=== PATIENT | female | born 1965 | race American Indian/Alaskan Native ===

== ENCOUNTER 2017-05-15 10:45 | Emergency (ER) | payer MEDICAID ==
[2017-05-15 11:52] VITALS: BP 154/87
== END 2017-05-15 17:10 | disposition left against medical advice (07) ==
LOC: ED 10:45
DX: M79.605 Pain in left leg (principal); Z53.21 Procedure and treatment not carried out due to patient leaving prior to being seen by health care provider

== ENCOUNTER 2019-02-22 10:26 | Emergency (ER) | payer MEDICAID ==
[2019-02-22 10:32] VITALS: BP 115/67
--- NOTE | 2019-02-22 10:36 | Event Note ---
ED Screening Note ED Screening Note: right knee pain for two months no fall or injury PCP sent to [facility] no numbness or weakness
--- NOTE | 2019-02-22 10:39 | Emergency Department Report ---
ED Extremity Problem HPI - General Chief complaint: Extremity Problem,Nontraumatic Stated complaint: LEG/KNEE PAIN Source: patient Mode of arrival: Ambulatory Limitations: No Limitations - History of Present Illness Initial comments: Patient is a 53-year-old female presents emergency room with complaints of right knee pain and swelling that began 2 months ago. She denies any fall or injury. she denies any numbness or weakness. she saw her primary care doctor for this complaint and was referred to [facility]. She states that [facility] believed her knee discomfort was coming from her back but she never followed back up. Patient has also had chronic knee pain on the left knee. - Related Data Previous Rx's Medication Instructions Recorded Last Taken Type Menthol/Camphr/Antiarthritic 1 1 applicatio TP BID #113 cream.ml. 02/22/19 Unknown Rx [[place] Arthritis Rub Cream] Naproxen [EC-Naprosyn] 500 mg PO BID PRN #14 tablet. 02/22/19 Unknown Rx Allergies Allergy/AdvReac Type Severity Reaction Status Date / Time No Known Allergies Allergy Unverified 02/22/19 10:30 ED Review of Systems ROS: Stated complaint: LEG/KNEE PAIN Other details as noted in HPI Comment: All other systems reviewed and negative ED Past Medical Hx - Past Medical History Previous Medical History?: Yes Hx Hypertension: Yes - Surgical History Past Surgical History?: Yes Additional Surgical History: Hysterectomy - Social History Smoking Status: Current Every Day Smoker Substance Use Type: None - Medications Home Medications: Home Medications Medication Instructions Recorded Confirmed Last Taken Type Menthol/Camphr/Antiarthritic 1 1 applicatio TP BID #113 cream.ml. 02/22/19 Unknown Rx [[place] Arthritis Rub Cream] Naproxen [EC-Naprosyn] 500 mg PO BID PRN #14 tablet. 02/22/19 Unknown Rx ED Physical Exam - General Limitations: No Limitations General appearance: alert, in no apparent distress - Head Head exam: Present: atraumatic, normocephalic - Eye Eye exam: Present: normal appearance - ENT ENT exam: Present: mucous membranes moist - Extremities Exam Extremities exam: Present: other (mild TTP over the right medial and lateral knee, knee is equal in size compared to the left knee, no erythema, no increased warmth, FROM of the right knee, mild discomfort upon full flexion of the right knee, no obvious joint laxity, neurovascularly intact ) - Neurological Exam Neurological exam: Present: alert, oriented X3 - Psychiatric Psychiatric exam: Present: normal affect, normal mood - Skin Skin exam: Present: warm, dry, intact ED Course Vital Signs 02/22/19 10:31 Temperature 98.9 F Pulse Rate 91 H Respiratory 20 Rate Blood Pressure 115/67 O2 Sat by Pulse 100 Oximetry ED Medical Decision Making - Medical Decision Making Patient is a 53-year-old female presents emergency room with complaints of right knee pain and swelling that began 2 months ago. She denies any fall or injury. she denies any numbness or weakness. she saw her primary care doctor for this complaint and was referred to [facility]. She states that [facility] believed her knee discomfort was coming from her back but she never followed back up. Patient has also had chronic knee pain on the left knee. vitals are normal. on exam: mild TTP over the right medial and lateral knee, knee is equal in size compared to the left knee, no erythema, no increased warmth, FROM of the right knee, mild discomfort upon full flexion of the right knee, no obvious joint laxity, neurovascularly intact. Knee pain is chronic in nature, there is no traumatic injury, no signs of septic joint, no obvious joint effusion visualized, patient has full range of motion, no need for emergent imaging will refer patient to orthopedics. Patient given prescription for naproxen and Independence balm ointment. advised pt to please take medication as prescribed. may use ice packs, rest, elevation of your leg. please follow up with an orthopedic doctor for further evaluation and management. return to the emergency room for any new or worsening symptoms. - Differential Diagnosis arthritis, tendonitis, strain, sprain, joint effusion, DJD Critical care attestation.: If time is entered above; I have spent that time in minutes in the direct care of this critically ill patient, excluding procedure time. ED Disposition Clinical Impression: Right knee pain Qualifiers: Chronicity: acute Qualified Code(s): M25.561 - Pain in right knee Disposition: DC-01 TO HOME OR SELFCARE Is pt being admited?: No Does the pt Need Aspirin: No Condition: Stable Instructions: Arthralgia (ED) Additional Instructions: please take medication as prescribed. may use ice packs, rest, elevation of your leg. please follow up with an orthopedic doctor for further evaluation and management. return to the emergency room for any new or worsening symptoms. Prescriptions: Naproxen [EC-Naprosyn] 500 mg PO BID PRN #14 tablet.dr CARRILLO Reason: pain Menthol/Camphr/Antiarthritic 1 [[place] Arthritis Rub Cream] 1 applicatio TP BID #113 cream.ml. Referrals: CECI DELAROSA MD [Staff Physician] - 2-3 Days Time of Disposition: 10:36 Print Language: SWAZI
== END 2019-02-22 10:53 | disposition home or self-care (01) ==
LOC: ED 10:26
DX: M25.561 Pain in right knee (principal); I10 Essential (primary) hypertension; F17.200 Nicotine dependence, unspecified, uncomplicated; Z90.710 Acquired absence of both cervix and uterus; Z79.899 Other long term (current) drug therapy
CPT/HCPCS: 99281

== ENCOUNTER 2019-07-02 22:24 | Emergency (ER) | payer MEDICAID ==
[2019-07-02 22:52] VITALS: BP 159/98
[2019-07-03 02:08] LABS: Bilirubin,Urine NEG (Negative); Blood,Urine NEG (Negative); Color,Urine Yellow (Yellow); Mucus,Urine 1+ /HPF
--- NOTE | 2019-07-03 02:58 | Emergency Department Report ---
ED General Adult HPI - General Chief complaint: Back Pain/Injury Stated complaint: BACK PAIN Time Seen by Provider: 07/03/19 00:13 Source: patient Mode of arrival: Ambulatory Limitations: No Limitations - History of Present Illness Initial comments: 54-year-old obese -[place] Islander female sent emergency department complaining of a 2-day history of dysuria associated with a 3-day history of constipation. States constipation started and has been progressively worsening and recently her urine flow has been compromised. Pain does radiate towards her back has an occasional burning crampy sensation with urination. There is no diarrhea, no hemoptysis no hematemesis no nausea or vomiting. - Related Data Previous Rx's Medication Instructions Recorded Last Taken Type Menthol/Camphr/Antiarthritic 1 1 applicatio TP BID #113 cream.ml. 02/22/19 Unknown Rx [[place] Arthritis Rub Cream] Naproxen [EC-Naprosyn] 500 mg PO BID PRN #14 tablet. 02/22/19 Unknown Rx Lactulose [Cephulac] 30 gm PO Q6HR PRN #450 ml 07/03/19 Unknown Rx Nitrofurantoin [place]/M-Cryst 100 mg PO Q12HR #20 capsule 07/03/19 Unknown Rx [Macrobid CAP] Allergies Allergy/AdvReac Type Severity Reaction Status Date / Time No Known Allergies Allergy Unverified 02/22/19 10:30 ED Review of Systems ROS: Stated complaint: BACK PAIN Other details as noted in HPI Comment: All other systems reviewed and negative ED Past Medical Hx - Past Medical History Previous Medical History?: Yes Hx Hypertension: Yes - Surgical History Past Surgical History?: No Additional Surgical History: Hysterectomy - Social History Smoking Status: Current Every Day Smoker - Medications Home Medications: Home Medications Medication Instructions Recorded Confirmed Last Taken Type Menthol/Camphr/Antiarthritic 1 1 applicatio TP BID #113 cream.ml. 02/22/19 Unknown Rx [[place] Arthritis Rub Cream] Naproxen [EC-Naprosyn] 500 mg PO BID PRN #14 tablet. 02/22/19 Unknown Rx Lactulose [Cephulac] 30 gm PO Q6HR PRN #450 ml 07/03/19 Unknown Rx Nitrofurantoin [place]/M-Cryst 100 mg PO Q12HR #20 capsule 07/03/19 Unknown Rx [Macrobid CAP] ED Physical Exam - General Limitations: No Limitations General appearance: alert, in no apparent distress - Head Head exam: Present: atraumatic, normocephalic - Eye Eye exam: Present: normal appearance, PERRL, EOMI. Absent: scleral icterus, conjunctival injection, periorbital swelling Pupils: Present: normal accommodation - ENT ENT exam: Present: normal exam, normal orophraynx, mucous membranes moist, TM's normal bilaterally - Neck Neck exam: Present: normal inspection, full ROM - Respiratory Respiratory exam: Present: normal lung sounds bilaterally. Absent: respiratory distress, wheezes, rales, chest wall tenderness, accessory muscle use - Cardiovascular Cardiovascular Exam: Present: regular rate, normal rhythm. Absent: systolic murmur, diastolic murmur, rubs, gallop - GI/Abdominal GI/Abdominal exam: Present: soft, normal bowel sounds (Increased tympany noted.). Absent: tenderness, guarding, rebound, mass, bruit, pulsatile mass - Extremities Exam Extremities exam: Present: normal inspection, full ROM, normal capillary refill - Back Exam Back exam: Present: normal inspection. Absent: CVA tenderness (R), CVA tenderness (L) - Neurological Exam Neurological exam: Present: alert, oriented X3, CN II-XII intact, normal gait - Psychiatric Psychiatric exam: Present: normal affect, normal mood - Skin Skin exam: Present: warm, dry, intact, normal color. Absent: rash ED Course Vital Signs 07/02/19 22:33 Temperature 98.6 F Pulse Rate 97 H Respiratory 20 Rate Blood Pressure 159/98 O2 Sat by Pulse 97 Oximetry Critical care attestation.: If time is entered above; I have spent that time in minutes in the direct care of this critically ill patient, excluding procedure time. ED Disposition Clinical Impression: Constipation, UTI (urinary tract infection) Disposition: TO HOME OR SELFCARE Is pt being admited?: No Does the pt Need Aspirin: No Condition: Stable Instructions: Constipation (ED), Urinary Tract Infection in Women (ED), Dysuria (ED) Prescriptions: Lactulose [Cephulac] 30 gm PO Q6HR PRN #450 ml PRN Reason: Constipation Nitrofurantoin [place]/M-Cryst [Macrobid CAP] 100 mg PO Q12HR #20 capsule Referrals: ,CE, RN [Primary Care Provider] - 3-5 Days
== END 2019-07-03 03:54 | disposition home or self-care (01) ==
LOC: ED 22:24
DX: N39.0 Urinary tract infection, site not specified (principal); K59.00 Constipation, unspecified; I10 Essential (primary) hypertension; F17.200 Nicotine dependence, unspecified, uncomplicated; Z90.710 Acquired absence of both cervix and uterus; Z79.899 Other long term (current) drug therapy
CPT/HCPCS: 81001; 99283

== ENCOUNTER → 2021-09-08 | Emergency (ER) | payer OTHER, MEDICAID ==
[~2021-09-08] MED LIST: IBUPROFEN 800 MG TAB PO ONE
[2021-09-08 14:23] VITALS: BP 182/86
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
== END | disposition home or self-care (01) ==
LOC: ED 11:21
DX: S39.012A Strain of muscle, fascia and tendon of lower back, initial encounter (principal); S13.4XXA Sprain of ligaments of cervical spine, initial encounter; I10 Essential (primary) hypertension; F17.200 Nicotine dependence, unspecified, uncomplicated; Z79.899 Other long term (current) drug therapy; V89.2XXA Person injured in unspecified motor-vehicle accident, traffic, initial encounter; Y93.89 Activity, other specified; Y92.89 Other specified places as the place of occurrence of the external cause; Y99.8 Other external cause status
CPT/HCPCS: 72040; 72100; 99283

== ENCOUNTER 2021-11-16 11:42 | Emergency (ER) | payer MEDICAID, OTHER ==
[2021-11-16 12:02] VITALS: BP 130/90
[2021-11-16] MEDS ORDERED: BACITRACIN ZINC OINT 28.4 GM TP ONE (12:23)
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
[2021-11-16] MEDS ORDERED: HYDROcodone/ACETAMINOPHEN 5-325 MG TAB PO ONE (12:54)
== END 2021-11-16 13:11 | disposition left against medical advice (07) ==
LOC: ED 11:42
DX: T20.10XA Burn of first degree of head, face, and neck, unspecified site, initial encounter (principal); Y92.89 Other specified places as the place of occurrence of the external cause; F17.200 Nicotine dependence, unspecified, uncomplicated; I10 Essential (primary) hypertension
CPT/HCPCS: 99282